=== PATIENT | female | born 1970 | race Caucasian/White ===

== ENCOUNTER 2020-02-18 09:58 | Outpatient (REF) | payer OTHER, SELFPAY ==
--- NOTE | 2020-02-18 10:01 | CT_ITS ---
EXAMINATION: CT SOFT TISSUE NECK WITH CONTRAST CLINICAL INFORMATION: Adenoid cystic carcinoma. COMPARISON: Soft tissue neck CT scan 02/05/2019, 04/15/2017, 02/01/2016. TECHNIQUE: Following the intravenous administration of 60 mL of Omnipaque 350 intravenous contrast, helical imaging was performed in the axial plane with generation of coronal and sagittal reformatted images. This CT examination was performed using dose optimization techniques as appropriate, variously including the following: *Automated exposure control *Adjustment of mA and/or kV according to patient size (this includes techniques or standardized protocols for targeted exams where dose is matched to indication/reason for exam; i.e. extremities or head) *Use of iterative reconstruction technique DLP: 412 mGy-cm FINDINGS: Again there are chronic changes of a left modified neck dissection with resection of the submandibular gland and left internal jugular vein. More recent changes of a right side modified right neck dissection are redemonstrated. There is persistent relatively extensive submucosal edema involving the pharyngeal mucosal spaces and epiglottis consistent with post treatment effects. There is asymmetric fatty atrophy of the right tongue that has slightly progressed. There is no new enhancing soft tissue mass or adenopathy within the neck. No mediastinal or axillary adenopathy is visualized within the [id number] of this examination. Retromaxillary fat is preserved. 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 Cervical carotid and vertebral arteries are grossly patent. The aortic arch apex is unremarkable. The thyroid gland is normal and the remainder of the visualized visceral soft tissues are normal. Pleural parenchymal scarring involving the lateral aspect of the right lung apex presumably represents posttreatment change. There is extensive centrilobular emphysema involving both lungs. No acute osseous finding. Specifically no worrisome lytic or blastic osseous lesion. Grossly no evidence of canal compromise. The skull base is intact. No mastoid or middle ear effusion. No active paranasal sinus disease. Limited visualization of intracranial compartment reveals no abnormal finding. CT/CT soft tissue neck w con IMPRESSION: Slight progression of extensive circumferential submucosal edema involving the pharyngeal mucosal spaces and epiglottis consistent with posttreatment effects. Otherwise stable examination with no evidence of new or worsening nodular enhancement to suggest disease progression. No pathologically enlarged lymph nodes within the [id number] of this examination.
[2020-02-18] MEDS: iohexoL 350 MG/ML 100 ML INFUS..BTL IV (10:50)
== END 2020-02-18 09:59 | disposition home or self-care (01) ==
LOC: HO.CT 09:58
PROVIDERS: PCP Internal Medicine; Visit Provider Internal Medicine
DX: C04.9 Malignant neoplasm of floor of mouth, unspecified (principal)
CPT/HCPCS: 70491; Q9967

== ENCOUNTER 2020-03-08 15:11 | Outpatient (REF) | payer OTHER, SELFPAY ==
[2020-03-08 16:14] LABS: Hematocrit 36.3 % (37-47); Hemoglobin 11.1 g/dl (12.0-16.0); Mean Corpuscular HGB Conc 30.6 g/dl (31.0-35.0); Mean Corpuscular Hemoglobin 26.4 pg (27.0-33.0); Mean Corpuscular Volume 86.2 fL (80-98); Mean Platelet Volume 9.7 fL (9.4-12.3); Platelet Count 389 X10*3/uL (160-400); Red Blood Count 4.21 X10*6/uL (4.20-5.50); Red Cell Distribution Width 14.9 % (11.0-16.0); White Blood Count 4.9 X10*3/uL (4.8-10.8)
[2020-03-08 16:44] LABS: Alanine Aminotransferase 8 U/L (0-31); Albumin Level 3.5 g/dL (3.5-5.0); Alkaline Phosphatase 71 U/L (39-117); Anion Gap 10 (12-20); Aspartate Amino Transferase 11 U/L (5-31); Bilirubin Total 0.2 mg/dL (0.0-1.0); Blood Urea Nitrogen 7 mg/dL (9-16); Calcium 8.7 mg/dL (8.4-10.2); Carbon Dioxide 30 mmol/L (22-29); Chloride 103 mmol/L (96-108); Cholesterol 182 mg/dL; Estimated Glomerular Filt Rate > 60; Glucose Fasting 88 mg/dL (60-99); HDL Cholesterol 57 mg/dL; LDL Cholesterol Calculated 86 mg/dl; Potassium 5.4 mmol/l (3.3-5.1); Sodium 138 mmol/L (135-145); Total Protein 6.4 g/dL (6.5-8.0); Triglycerides 197 mg/dL
[2020-03-08 18:17] LABS: Free T4 (Free Thyroxine) 0.79 ng/dL (0.71-1.85)
== END 2020-03-08 15:12 | disposition home or self-care (01) ==
LOC: HO.LAB 15:11
PROVIDERS: PCP Internal Medicine; Visit Provider Internal Medicine
DX: C76.0 Malignant neoplasm of head, face and neck (principal); E78.5 Hyperlipidemia, unspecified
CPT/HCPCS: 36415; 80053; 80061; 84439; 84443; 85027

== ENCOUNTER 2020-03-15 13:13 | Outpatient (REF) | payer OTHER, SELFPAY ==
--- NOTE | 2020-03-15 | CT_ITS ---
EXAMINATION: CT CHEST WITHOUT CONTRAST CLINICAL INFORMATION: Right upper lobe pulmonary nodule. COMPARISON: CT chest 11/25/2019 TECHNIQUE: Multidetector volumetric CT imaging of the chest was done. Axial MIP volume rendering provided. Sagittal and coronal reformatted images were obtained. This CT examination was performed using dose optimization techniques as appropriate, variously including the following: *Automated exposure control *Adjustment of mA and/or kV according to patient size (this includes techniques or standardized protocols for targeted exams where dose is matched to indication/reason for exam; i.e. extremities or head) *Use of iterative reconstruction technique DLP: 75 mGy-cm FINDINGS: [employer] AND FIELD COACH: Hyperinflated lungs. LUNGS: There is centrilobular emphysema with bilateral apical pleural thickening and parenchymal scarring slightly greater on the right. Since the previous study there is a thick scar extending into the right apical and upper lobe lung parenchyma with air bronchogram, bronchiectasis and thick parenchymal density. Previously seen semisolid nodule in the right upper lobe is not visualized at this time. 2 adjacent ground-glass attenuations in the right upper lobe adjacent nodule are also not visualized. There is a new patchy opacity with ground-glass attenuation seen in the posterior segment of left lower lobe. 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 A 3 mm nodule is seen left lung base subpleural location image 466/5, new. MEDIASTINUM: Thyroid lobes are small, symmetrical and normal. The central trachea and the bronchi are widely patent. Heart size and the great vessels are normal caliber. No abnormal size mediastinal lymph nodes or mass seen. No pericardial effusion. PLEURA: There is no pleural effusion. No pleural mass or thickening. AXILLA: No lymphadenopathy. UPPER ABDOMEN: Visualized liver, spleen and pancreas appear unremarkable. OSSEOUS STRUCTURES: No lytic or sclerotic process seen. There is mild spondylosis dorsal spine. CT/CT chest wo con IMPRESSION: Significant centrilobular emphysema , bilateral apical pleural thickening and parenchymal scarring greater on the right. There is a new thick scar along the right apical lateral and upper lobe segments with air bronchogram, focal bronchiectasis and thick parenchymal density. Differential diagnosis includes progression of scarring versus underlying infiltrate or underlying mass. It measures approximately 5.8 cm in AP and 1.7 cm thick. Further evaluation with CT-PET scan can be performed New patchy opacity with ground-glass attenuation seen in the posterior segment left lower lobe likely bronchoalveolar disease with a small nodule in the left lower lobe posterior segment. Previously seen semisolid nodules and ground-glass density in the right upper lobe have resolved.
== END 2020-03-15 13:14 | disposition home or self-care (01) ==
LOC: HO.CT 13:13
PROVIDERS: Visit Provider Surgery
DX: R91.1 Solitary pulmonary nodule (principal)
CPT/HCPCS: 71250

== ENCOUNTER → 2020-04-21 10:23 | Outpatient (BNVA) | payer OTHER, SELFPAY | PROVIDERS: PCP Internal Medicine; Visit Provider Surgery | DX: Z76.89 Persons encountering health services in other specified circumstances (principal) | CPT/HCPCS: 99215 ==

== ENCOUNTER 2021-06-18 11:32 | Emergency (ER) | payer OTHER, SELFPAY ==
--- NOTE | ~2021-06-18 | XR_ITS ---
EXAMINATION: XR CHEST CLINICAL INFORMATION: Pneumonia COMPARISON: Chest radiographs 11/03/2018, CT chest 10/05/2018 03/15/2020. TECHNIQUE: 2 views of the chest were obtained. FINDINGS: There is hyperinflation upper zones with prominent retrosternal air space similar to prior chest. The left lung is clear. The vascularity is normal. The costophrenic sulci are well-defined. There is peripheral opacity right apical lateral upper lobe with linear stranding towards the superior right hilum. Finding is decreased from CT chest 03/15/2020. There is no new airspace consolidation or new groundglass opacity. The heart is normal in size and the hilar and mediastinal contours and visualized bony structures are unremarkable. XR/XR chest 2V IMPRESSION: Pleural-parenchymal opacity right apical lateral upper lobe with linear stranding towards the superior right hilum slightly decreased from prior CT 03/15/2020. No effusion.
[2021-06-18 12:51] VITALS: BP 107/72; PULSE 96; RESP 18; TEMP 36.9; O2SAT 98; BMI 16.2
--- NOTE | 2021-06-18 15:01 | ED_ITS ---
HPI - General Adult General Chief complaint: Upper Respiratory Symptoms Stated complaint: cough sob quest pneumonia Time Seen by Provider: 06/18/21 15:01 Source: patient Limitations: no limitations History of Present Illness HPI narrative: This is the 51-year-old female with history of throat cancer who complains of a cough for the last 5 days, productive of phlegm. The patient has had prior pneumonia and feels like she has pneumonia again. She states she feels like she has had a fever but has not measured her temperature at home. She denies feeling short of breath. She denies swelling in her extremities. She denies any chest pain, abdominal pain, vomiting, diarrhea. Related Data Home Medications Medication Instructions Recorded Confirmed ibuprofen 600 mg tablet 600 mg PO TID PRN 02/17/20 04/21/20 paroxetine HCl 10 mg tablet (Paxil) 10 mg PO DAILY 02/17/20 04/21/20 chlorhexidine gluconate 0.12 % ml PO 04/21/20 04/21/20 mouthwash Previous Rx's Medication Instructions Recorded lorazepam 0.5 mg tablet 0.5 mg PO DAILY #2 tab 03/17/20 pantoprazole 40 mg tablet,delayed 40 mg PO DAILY #90 tab 03/17/20 release levothyroxine 25 mcg tablet 25 mcg PO DAILY #90 tab 04/06/20 paroxetine HCl 20 mg tablet (Paxil) 20 mg PO DAILY #30 tab 11/16/20 ipratropium 20 mcg-albuterol 100 1 puff INHALATION Q6H #12 ml 11/30/20 mcg/actuation mist for inhalation (Combivent Respimat) amoxicillin-potassium clavulanate 2 tab PO BID 7 Days #28 tab 06/18/21 1,000 mg-62.5 mg tablet,ext.rel 12hr doxycycline hyclate 100 mg capsule 100 mg PO BID #14 cap 06/18/21 Allergies Allergy/AdvReac Type Severity Reaction Status Date / Time adhesive Allergy Unknown Rash Verified 04/21/20 10:46 Review of Systems Review of Systems: Yes all other systems are reviewed and are negative Constitutional: Constitutional: Reports fever(s) Eyes: Eyes: Reports as per HPI and Reports no additional eye complaints ENT: Reports system reviewed and no additional complaints, except as documented, Reports as per HPI, Denies nasal congestion, Denies nasal discharge and Denies sore throat Cardiovascular: Cardiovascular: Reports as per HPI, Denies chest pain and Denies dyspnea Respiratory: Respiratory: Reports as per HPI, Reports cough and Denies dyspnea Gastrointestinal: Gastrointestinal: Reports as per HPI, Denies abdominal pain, Denies diarrhea and Denies vomiting Genitourinary: Genitourinary: Reports as per HPI, Denies hematuria, Denies urinary frequency and Denies dysuria Musculoskeletal: Musculoskeletal: Reports no additional musculoskeletal complaints and Denies numbness Integumentary/Breasts: Skin/Breast: Reports as per HPI and Denies rash Neurologic: Reports as per HPI, Denies focal weakness and Denies numbness Psychiatric: Psychiatric: Reports no additional psychiatric complaints and Reports as per HPI Endocrine: Endocrine: Reports no additional endocrine complaints and Reports as per HPI Hematologic/Lymphatic: Hematologic/Lymphatic: Reports no additional hematologic/lymphatic complaints, Reports as per HPI and Reports other (No peripheral edema) [facility] Past Medical History Medical History 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 Paternal Grandmother HTN (hypertension) CVD (cardiovascular disease) Diabetes mellitus Maternal Aunt No problems noted. Brother No problems noted. Brother No problems noted. Daughter No problems noted. Social History Social History Alcohol intake: former Advance Directives: Yes Advance Directives Information Provided: No Advance Directives on File: No Physical Exam ED Vital Signs: Vital Signs - 24 hr 06/18/21 12:51 06/18/21 15:13 Temperature 98.4 F 98.4 F Pulse Rate 96 87 Respiratory Rate 18 14 Blood Pressure 107/72 97/73 Pulse Oximetry 98 100 BMI result Body Mass Index 16.2 Const General: no acute distress Orientation/consciousness: patient oriented x3 HENMT Head: Yes normal to inspection General nose exam: Normal external nose present Mouth: moist mucous membranes Throat: Yes posterior oropharynx normal, Yes tonsils normal and Yes uvula midline Eyes Eyelids: Yes eyelids normal Conjunctivae: conjunctivae normal Pupils: Equal, round and reactive pupils present Neck Neck: Yes supple Resp Effort & Inspection: normal respiratory effort Auscultation: not clear to auscultation bilaterally and rhonchi Cardio Rate: regular rate Rhythm: regular rhythm Heart sounds: S1 normal heart sound present, S2 normal heart sound present, no gallops, no murmurs and no rubs GI Inspection: No distended Palpation (GI): Soft to palpation and nontender Auscultation: normal bowel sounds Skin General skin exam: other (Warm and dry) Neuro General: patient oriented x3 and CN's II-XI intact bilaterally Cranial nerves: Yes Equal, round and reactive pupils present Extrem General: Yes no pedal edema Psych Affect: normal affect Attitude: cooperative Medical Decision Making [facility] Narrative Medical decision making narrative: patient with history of throat cancer, has had a productive cough for 5 days, feels like she has pneumonia again. Chest x-ray showed markings which had improved compared to prior CT. The patient does however have fairly noisy resp irations on exam, and given her history of throat cancer and some problems with phonating, she is at risk for aspiration. I will cover with amoxicillin / clavulanate and doxycycline for 7 days. Imaging Data Chest x-ray: Radiologist's impression: IMPRESSION: Pleural-parenchymal opacity right apical lateral upper lobe with linear stranding towards the superior right hilum slightly decreased from prior CT 03/15/2020. No effusion. Discharge Plan Discharge Clinical Impression: Bronchitis Patient Disposition: Home, Self-Care Instructions: Acute Bronchitis (ED) Additional Instructions: Take the antibiotics as prescribed. He has a cough medicine such as Robitussin DM. Return for any new or worsened symptoms such as worse shortness of breath, fever Prescriptions: New doxycycline hyclate 100 mg capsule 100 mg PO BID Qty: 14 0RF amoxicillin-pot clavulanate 1,000-62.5 mg tablet extended release 12 hr 2 tab PO BID 7 Days Qty: 28 0RF No Action levothyroxine 25 mcg tablet 25 mcg PO DAILY Qty: 90 3RF Combivent Respimat 20-100 mcg/actuation mist 1 puff inhalation Q6H Qty: 12 3RF paroxetine HCl [Paxil] 10 mg tablet 10 mg PO DAILY 0RF ibuprofen 600 mg tablet 600 mg PO TID PRN (Reason: Pain) 0RF pantoprazole 40 mg tablet,delayed release (DR/EC) 40 mg PO DAILY Qty: 90 2RF lorazepam 0.5 mg tablet 0.5 mg PO DAILY Qty: 2 0RF paroxetine HCl [Paxil] 20 mg tablet 20 mg PO DAILY Qty: 30 3RF chlorhexidine gluconate 0.12 % mouthwash PO 0RF Interventions: ED Discharge Assessment Last Done: 06/18/21 15:30 Discharge Date/Time: 06/18/21 15:30
[2021-06-18 15:13] VITALS: BP 97/73; PULSE 87; RESP 14; TEMP 36.9; O2SAT 100
--- NOTE | 2021-06-18 15:29 | PC.NURSE ---
Pt alert and oriented x4, calm and cooperative. Denies pain at this time. Does not appear in distress, breathing without issues, 100% on room air. No IV in place. Vitals stable. Pt educated on dc and stated an understanding. Ambulated out to private car being picked up, steady on her feet.
== END 2021-06-18 15:30 | disposition home or self-care (01) ==
PROVIDERS: Emergency Provider Emergency Medicine; PCP Internal Medicine
DX: J40 Bronchitis, not specified as acute or chronic (principal); Z87.01 Personal history of pneumonia (recurrent); Z85.819 Personal history of malignant neoplasm of unspecified site of lip, oral cavity, and pharynx
CPT/HCPCS: 71046; 99283; 99284

== ENCOUNTER 2021-11-11 00:37 | Emergency (ER) | payer OTHER, SELFPAY ==
--- NOTE | 2021-11-11 | ECG_ITS ---
Test Reason : CHEST PAIN Blood Pressure : / mmHG Vent. Rate : 059 BPM Atrial Rate : 059 BPM P-R Int : 142 ms QRS Dur : 094 ms QT Int : 452 ms P-R-T Axes : 079 060 015 degrees QTc Int : 447 ms Sinus bradycardia Moderate voltage criteria for LVH, may be normal variant ( Sokolow-Damico , Patterson product ) Nonspecific T wave abnormality Abnormal ECG No previous ECGs available Referred By: Hernando Burciaga Electronically Signed By:ANGELINE ENCINAS MD
--- NOTE | ~2021-11-11 | US_ITS ---
EXAMINATION: US VENOUS ULTRASOUND WITH DOPPLER LOWER EXTREMITY, BILATERAL CLINICAL INFORMATION: Increasing d-dimer. COMPARISON: None TECHNIQUE: Ultrasound of the deep veins is performed from the hip to the calf with compression sonography and color and pulse Doppler assessment. Spectral analysis with color-flow imaging is performed. FINDINGS: RIGHT: There is normal venous compression and respiratory variation and augmented flow. The visualized common femoral vein, superficial femoral vein, profunda femoral vein, popliteal vein, and the trifurcation region shows no evidence of deep venous thrombosis. There is no significant popliteal fossa cyst. LEFT: There is normal venous compression and respiratory variation and augmented flow. The visualized common femoral vein, superficial femoral vein, profunda femoral vein, popliteal vein, and the trifurcation region shows no evidence of deep venous thrombosis. There is no significant popliteal fossa cyst. If the patient's symptoms persist, followup ultrasound in 5 days 7 days might be of value to exclude proximal propagation from a non-visualized calf vein. US/US venous duplex LE BI IMPRESSION: No DVT demonstrated in the both lower extremities.
--- NOTE | ~2021-11-11 | XR_ITS ---
EXAMINATION: XR CHEST CLINICAL INFORMATION: Chest pain COMPARISON: 08/18/2021 TECHNIQUE: 2 views of the chest were obtained. FINDINGS: Emphysema. Stable pleural-parenchymal scarring at the lateral right lung apex, with associated traction bronchiectasis. No acute pulmonary parenchymal abnormalities. No pleural effusion or pneumothorax. Normal heart size and pulmonary vascularity. Aorta is atherosclerotic. XR/XR chest 2V IMPRESSION: No acute findings. Emphysema. Stable pleural-parenchymal scarring at the lateral right lung apex.
--- NOTE | ~2021-11-11 | CT_ITS ---
EXAMINATION: CT ANGIOGRAM OF THE CHEST WITH AND WITHOUT CONTRAST (CT PULMONARY ANGIOGRAM FOR PE) CLINICAL INFORMATION: Reason for Exam ? PE COMPARISON: March 15, 2020 TECHNIQUE: Prior to contrast administration, noncontrast localization images were obtained. Subsequently, multidetector volumetric imaging was performed from the thoracic inlet to below the diaphragms following the administration of 65 mL Omnipaque 350 intravenous contrast. No contrast reaction reported Sagittal, coronal, and MIP oblique sagittal reformatted images were obtained on the CT workstation, uploaded to PACS, and reviewed. This CT examination was performed using dose optimization techniques as appropriate, variously including the following: *Automated exposure control *Adjustment of mA and/or kV according to patient size (this includes techniques or standardized protocols for targeted exams where dose is matched to indication/reason for exam; i.e. extremities or head) *Use of iterative reconstruction technique Total exam dose-length product 195 mGy-cm FINDINGS: QUALITY OF STUDY/CONTRAST BOLUS: Satisfactory. PULMONARY ARTERIES: There is no evidence of acute pulmonary artery emboli. THORACIC AORTA: No thoracic aortic aneurysm or dissection. LUNG: There is stable significant changes of centrilobular emphysema bilaterally. There is stable region of scarring and soft tissue density with some bronchiectasis and pleural thickening about the lateral right upper lobe. There is a region of density with airspace disease about the right middle lobe adjacent to the major fissure. This could be related to atelectasis or pneumonitis. This was not present on previous study of March 15, 2020. PLEURA: Pleural thickening and densities as described within the right upper lobe. No pleural effusion.. MEDIASTINUM: Normal heart size. No pericardial effusion. No hilar or mediastinal lymphadenopathy. No evidence of septal bowing or right heart strain. CHEST WALL/AXILLA: No axillary or internal mammary lymphadenopathy. OSSEOUS STRUCTURES: No acute or suspicious osseous abnormality. UPPER ABDOMEN: Unremarkable. No reflux of contrast into the hepatic veins to suggest elevated right heart pressures. There is small amount of fatty deposition along the falciform ligament within the liver. CT/CT angio chest PE protocol IMPRESSION: No evidence of acute pulmonary artery embolus. No evidence of thoracic aortic aneurysm or dissection. Severe changes of centrilobular emphysema. Chronic pleural-parenchymal scarring about the lateral right upper lobe. Focus of airspace disease within the right middle lobe adjacent to the major fissure which may be related to pneumonitis or atelectasis. VTE: No
[2021-11-11 00:41] VITALS: BP 140/56; PULSE 105; RESP 18; TEMP 37.3; O2SAT 96; BMI 15.5
[2021-11-11 01:11] LABS: Basophils Absolute Auto 0.1 X10*3/uL (0.0-0.2); Basophils Percent Auto 0.8 % (0-2); Eosinophils Absolute Auto 0.2 X10*3/uL (0.0-0.4); Eosinophils Percent Auto 2.4 % (0-4); Hematocrit 36.1 % (37.0-47.0); Hemoglobin 11.9 g/dl (12.0-16.0); Imm Gran Abs Auto 0.02 X10*3/uL (0.00-0.03); Imm Gran Pct Auto 0.2 % (0.0-0.4); Lymphocytes Absolute Auto 1.3 X10*3/uL (1.2-4.9); Lymphocytes Percent Auto 14.4 % (20-40); MANUAL DIFF FLAG NO; Mean Corpuscular Hemoglobin 27.5 pg (27.0-33.0); Mean Corpuscular Volume 83.4 fL (80.0-98.0); Mean Platelet Volume 8.9 fL (9.4-12.3); Neutrophils Absolute Auto 6.5 x10*3/uL (2.0-8.3); Neutrophils Percent Auto 71.2 % (45-73); Platelet Count 364 X10*3/uL (160-400); Red Blood Count 4.33 X10*6/uL (4.20-5.50); White Blood Count 9.1 X10*3/uL (4.8-10.8)
[2021-11-11 01:37] LABS: Alanine Aminotransferase 12 U/L (0-31); Albumin Level 4.3 g/dL (3.5-5.0); Alkaline Phosphatase 63 U/L (39-117); Anion Gap 18 (12-20); Aspartate Amino Transferase 19 U/L (5-31); Bilirubin Total 0.4 mg/dL (0.0-1.0); Blood Urea Nitrogen 18 mg/dL (9-16); Calcium 9.5 mg/dL (8.4-10.2); Carbon Dioxide 23 mmol/L (22-29); Chloride 101 mmol/L (96-108); Creatinine Clr Calc Pharmacy 48.2; Estimated Glomerular Filt Rate > 60; Glucose Random 88 mg/dL (60-115); Potassium 3.7 mmol/L (3.3-5.1); Sodium 138 mmol/L (135-145); Total Protein 7.5 g/dL (6.5-8.0)
[2021-11-11 01:40] LABS: Troponin-I High Sensitivity < 3.5 ng/L (<3.5-17.0)
[2021-11-11 04:00] VITALS: BP 132/75; PULSE 59; TEMP 36.4; O2SAT 99
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
[2021-11-11 09:00] LABS: Troponin-I High Sensitivity < 3.5 ng/L (<3.5-17.0)
[2021-11-11] MEDS: iohexoL 350 MG/ML 100 ML INFUS..BTL IV (09:10)
[2021-11-11 10:12] LABS: D Dimer High Sensitivity 858 NG/ML
[2021-11-11 12:18] VITALS: BP 142/71; PULSE 75; RESP 14; TEMP 36.7; O2SAT 97
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
--- NOTE | 2021-11-11 14:36 | MHC.CARE ---
Pt is a 51 y/o partnered, Austrian speaking, female who is previously unknown to the CARE Team. CARE Team meets with the pt after receiving a consult request for Anxiety and Depression.? Pt reports baseline anxiety and depression that she is on medication for.? She reports her boyfriend ran her medications over so she has been without them for approximately 7 or 8 days now.? Pt has significant health problems, reporting mouth and neck cancer that she has had surgery for.? She reports elevated anxiety.? Pt denies SI, HI, , and AVH.? Pt appears frail, reporting she used to weigh 147lbs and now weighs only 88lbs, attributing this to her surgery which, after recovering, has made it difficult for her to eat solid food due to swallowing issues. Pt has a hx of substance use, specifically crack cocaine, which she admitted to case management and denied to CARE Team.? Pt?s daughter told Case Management that pt has a hx of crack cocaine use. Pt reports significant discord at home with her significant other. CARE Team has requested a toxicology screen.? Should her toxicology screen come back positive, it is recommended that Recovery team see here. Pt could benefit from being restarted on her medications. CARE Team will refer pt to [facility] as she can benefit from regular counseling. Pt appears to be experiencing anxiety and depression in the context of her health issues, discord at home with her significant other, and possibly her substance use.
[2021-11-11 14:40] LABS: Appearance Urine CLEAR; Color Urine YELLOW; Glucose Urine UA NEG (NEG); Leukocyte Esterase Urine NEG (NEG); Nitrite Urine NEG (NEG); PH 5.5 (5.0-8.0); UACC Culture Trigger NO; Urine Blood TRACE (NEG); Urine Ketones NEG (NEG); Urine Protein NEG (NEG-TRACE)
[2021-11-11 14:54] LABS: Amphetamine Screen Urine Not Detected (Not Detect); Barbiturates, Urine Not Detected (Not Detect); Benzodiazepines Screen Urine Not Detected (Not Detect); Cannabinoid Screen Urine Not Detected (Not Detect); Cocaine Screen Urine POSITIVE (Not Detect); Fentanyl, urine Not Detected (Not Detect); Opiate Screen Urine Not Detected (Not Detect); Phencyclidine Screen Urine Not Detected (Not Detect)
[2021-11-11 15:00] LABS: Squamous Epithelial Cell Urine 1+ /LPF; WBC Urine 0 /HPF (0-4)
[2021-11-11 15:02] LABS: Calcium Oxalate Crystals Urine TRACE /LPF
[2021-11-11] MEDS: Nicotine 21 MG PATCH.TD24 TRANSDERMA (15:46)
--- NOTE | 2021-11-11 16:14 | PC.NURSE ---
[facility], CM AND care TEAM ALL HAVE MET WITH THE PT. AT THIS TIME, PT CONTINUES TO REFUSE ALL OPTIONS PRESENTED TO HER.
--- NOTE | 2021-11-11 16:37 | MHC.RECOVSUP ---
? Reason for consult [facility] use concern: cocaine - Support ? Intervention: <del>o</del> <del>ATS</del> <del>bed</del> <del>search</del> <del>started/completed/in</del> <del>process</del> <del>o</del> <del>MAT</del> <del>started</del> <del>or</del> <del>to</del> <del>be</del> <del>started</del> <del>o</del> <del>Community</del> <del>resources</del> <del>provided</del> <del>o</del> <del>Harm</del> <del>reduction</del> <del>discussion</del> ? Plan: <del>o</del> <del>Referral</del> <del>to</del> <del>[facility]</del> <del>o</del> <del>Bed</del> <del>search</del> <del>in</del> <del>progress</del> <del>to</del> <del>o</del> <del>Follow</del> <del>up</del> <del>tomorrow</del> <del>o</del> <del>Patient</del> <del>awaiting</del> <del>crisis</del> <del>evaluation</del> <del>o</del> <del>Patient</del> <del>to</del> <del>follow</del> <del>up</del> <del>with</del> <del>[facility]</del> <del>after</del> <del>discharge</del> ? Additional information: Patient refused Service.
[2021-11-11] MEDS: LORazepam 1 MG TABLET PO (16:59)
--- NOTE | 2021-11-11 17:22 | PC.NURSE ---
PT AWAITING THE ARRIVAL OF HER NEIGHBOR TO PICK HER UP. SHE IS IN NO DISTRESS, EATING AND MAKING CALLS ON HER PHONE
[2021-11-11 17:24] VITALS: BP 136/97; PULSE 95; O2SAT 99
== END 2021-11-11 17:36 | disposition home or self-care (01) ==
PROVIDERS: Emergency Medicine Emergency Medical Services; Emergency Provider Emergency Medicine
DX: R07.89 Other chest pain (principal); F41.1 Generalized anxiety disorder; F43.0 Acute stress reaction; F14.10 Cocaine abuse, uncomplicated; Z79.899 Other long term (current) drug therapy; F17.200 Nicotine dependence, unspecified, uncomplicated; Z71.6 Tobacco abuse counseling
CPT/HCPCS: 36415; 71046; 71275; 80053; 80307; 81001; 84484; 85025; 85379; 93005; 93970; 96365; 99285; Q9967